=== PATIENT | female | born 1980 | race Hispanic/Latino ===

== ENCOUNTER 2018-05-11 16:44 | Inpatient (IN) | payer OTHER ==
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
[2018-05-11 18:28] LABS: BASO % 0.4 % (0.0-2.0); EOS # 0.4 K/uL (0.0-0.7); EOS % 4.5 % (0.0-4.0); HEMOGLOBIN 14.1 g/dL (12.0-16.0); LYMPH # 2.3 K/uL (1.0-4.3); LYMPH % 24.9 % (20.0-40.0); MEAN CORPUSCULAR HEMOGLOBIN 29.5 pg (27.0-31.0); MEAN CORPUSCULAR HGB CONC 33.9 g/dL (33.0-37.0); MONO # 0.5 K/uL (0.0-0.8); MONO % 5.3 % (0.0-10.0); NEUT % 64.9 % (50.0-75.0); RBC 4.78 Mil/uL (3.80-5.20); RED CELL DISTRIBUTION WIDTH 13.4 % (11.5-14.5); WHITE BLOOD COUNT 9.2 K/uL (4.8-10.8)
[2018-05-11 18:30] LABS: SQUAMOUS EPITHIAL 1 /hpf (0-5); URINE BILIRUBIN NEGATIVE (NEGATIVE); URINE BLOOD NEGATIVE (NEGATIVE); URINE CLARITY SLIGHTY-CLOUDY (Clear); URINE COLOR YELLOW (YELLOW); URINE GLUCOSE (UA) NEG (Normal); URINE LEUKOCYTE ESTERASE NEG Leu/uL (Negative); URINE PROTEIN NEGATIVE (NEGATIVE); URINE UROBILINOGEN 0.2-1.0 mg/dL (0.2-1.0)
[2018-05-11 18:44] LABS: ALB/GLOB RATIO 1.2 (1.0-2.1); ALBUMIN 4.2 g/dL (3.5-5.0); ALT/SGPT 33 U/L (9-52); AST/SGOT 27 U/L (14-36); BLOOD UREA NITROGEN 10 mg/dl (7-17); CALCIUM 9.4 mg/dL (8.4-10.2); GFR NON-AFRICAN AMERICAN > 60
[2018-05-11 18:47] LABS: BARBITURATES, UR NEGATIVE (NEGATIVE); BENZODIAZEPINES, UR NEGATIVE (NEGATIVE); OPIATES, UR NEGATIVE (NEGATIVE); PHENCYCLIDINE, UR NEGATIVE (NEGATIVE)
[2018-05-11 18:59] LABS: ACETAMINOPHEN < 10.0 ug/ml (10.0-30.0); SALICYLATE < 1.0 mg/dl
[2018-05-11 21:32] VITALS: O2SAT 98
[2018-05-11] MEDS ORDERED: Alum-Mag Hydrox-Simethicone Susp (30 mL) PO PRN (21:42)
[2018-05-11] MEDS ORDERED: DiphenhydrAMINE 50 mg/ml Inj IM PRN (21:42)
[2018-05-11] MEDS ORDERED: Magnesium Hydroxide Susp 30 ml UD PO PRN (21:42)
--- NOTE | 2018-05-11 21:56 | PCM.BM ---
<EphraimLamont - Last Filed: 05/11/18 21:54> Treatment Plan Problems - Problems identified on initial assessmt Delusions Date Initiated: 05/11/18 Time Initiated: 21:54 Assessment reference: NA Status: Active Thought Process Date Initiated: 05/11/18 Time Initiated: 21:55 Assessment reference: NA Status: Active Alteration in Emotional Status Date Initiated: 05/11/18 Time Initiated: 21:55 Assessment reference: NA Status: Active Treatment assets and liabiliti Patient Assests: adapts well, cooperative, self-reliant, ADL independent, physically healthy, negotiates basic needs Patient Liabilities: live alone, financial problems, poor support system, relationship conflicts - Milieu Protocol Maintain good personal hygiene: every shift Encourage regular showers, every shift Remind patient to perform daily oral care, every shift Assist patient to perform ADL's Maintain personal safety: daily Educate patient to report safety concerns to staff, daily Monitor environment for contraband/sharps Medication safety: Monitor for expected outcome, potential side effects: daily, Assess barriers to learning: daily, Assess readiness for medication education: daily <Dione Sims - Last Filed: 05/13/18 08:56> - Diagnosis (1) Bipolar disorder with psychotic features Status: Acute Interventions: Medication management, Individual and group therapy, Psychoeducation 05/13/18 08:56 <Flora Zamora - Last Filed: 05/13/18 12:26> Family Contact Family involvement: Famliy/SO not involved Discharge/Continuing Care - Education Needs Education Needs: Patient Medication, Patient Diagnosis/Disease Process, Patient Coping Skills, Patient Community resources, Patient Activities of Daily Living, Patient Health Practices/Safety, Patient Personal Hygiene/Grooming, Patient Aftercare Safety Plan - Discharge Discharge Criteria: Tolerates medication w/o severe side effects, Free of paranoid thoughts, Free of agitation, Ability to care for self, Reduction of target symptoms Discharge to:: Custodial - Additional Comments 05/13/18 12:15 Pt discussed in team meeting. Pt refused to attend team meeting stating that she does not feel well and requested to stay in bed. Reason for hospitalization reviewed and discussed. Reportedly, pt traveled from [place] to [place] after hearing God telling her to come to [place]. Pt is reporting visual and auditory hallucinations. Pt continues to report suicide ideation but no plan or intent. Pt's medical issues reviewed. Pt reported having a sore throat. Pt's medications reviewed. Pt is easily irritable with staff members when re-directed. Tx plan reviewed and discussed. SW to meet with pt to complete initial assessment and obtain collateral information. - Treatment Team Participation Discussed with Family/SO: No Was Patient/Family/SO present at Treatment Team Meeting: No (Pt refused to attend team meeting. )
--- NOTE | 2018-05-11 22:15 | RAD ---
Date of service: 05/11/2018 HISTORY: psychiatric admission COMPARISON: No prior. FINDINGS: LUNGS: No active pulmonary disease. PLEURA: No significant pleural effusion identified, no pneumothorax apparent. CARDIOVASCULAR: No aortic atherosclerotic calcification present. Normal cardiac size. No pulmonary vascular congestion. OSSEOUS STRUCTURES: No significant abnormalities. VISUALIZED UPPER ABDOMEN: Normal. OTHER FINDINGS: None. IMPRESSION: No active disease.
--- NOTE | 2018-05-12 10:12 | CARD ---
APPROVED REPORT Date of service: 05/11/2018 EKG Measurement Heart [id number] <Conclusion> Normal sinus rhythm Normal ECG
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
--- NOTE | 2018-05-13 08:52 | PCM.PYCHPN ---
Psychiatric Progress Note - Psychiatric Progress Note Patient seen today, length of contact: Pt evaluated, case discussed w/ team, chart reviewed Patient Chief Complaint: "I'm hearing voices telling me I'm God, but I'm not." Problems Identified/Issues Discussed: Patient reports feeling depressed and anxious. She is irritable with staff. She reports that she continues to hear AH of angels telling her she is God, which she finds distressing because she does not believe she is God. She continues to have suicidal ideation w/o plan or intent. She states that she wishes she were was not alive. She is currently refusing to get blood work done. Arborer explained to the patient that we need to monitory [place] levels for safety. Medication Change: No Medical Record Reviewed: Yes Consults ordered or reviewed: Medicine consult Mental Status Examination - Cognitive Function Orientation: Person, Place, Situation, Time Memory: Intact Association: WNL Fund of Knowledge: [facility] Decription of patient's judgement and insights: Poor I/J - Mood Mood: Depressed, Anxious - Affect Affect: Constricted - Formal Thought Process Formal Thought Process: Hallucinations Psychotic Thoughts and Behaviors: +AH - Suicidal Ideation Suicidal Ideation: Yes Plan: No active plan or intent - Homicidal Ideation Homicidal Ideation: No Goal/Treatment Plan - Goal/Treatment Plan Need for Continued Stay: Remain at risks for inpatient hospitalization, Severe depression anxiety, Discharge may exacerbated symptoms Progress Toward Problem(s) and Goals/Treatment Plan: Bipolar Disorder w/ Psychotic Features -Continue [place] and Zyprexa -Medicine consult -Individual and group therapy -Psychoeducation -Disposition planning Estimated Date of D/C: 05/17/18 - Smoking Cessation Smoking Cessation Initiated: Yes
[2018-05-13] MEDS: Benzocaine/Menthol (Cepacol) Lozenge PO PRN ×2 (17:09→21:16)
[2018-05-14] MEDS: Benzocaine/Menthol (Cepacol) Lozenge PO PRN ×2 (08:41→16:09)
--- NOTE | 2018-05-14 10:25 | PCM.PYCHPN ---
Psychiatric Progress Note - Psychiatric Progress Note Patient seen today, length of contact: Pt evaluated, case discussed w/ team, chart reviewed Patient Chief Complaint: "I'm hearing voices telling me I'm God, but I'm not." Problems Identified/Issues Discussed: Patient rreports that she last heard AH of angels last night. She continues to wonder if the angels are correct when they say she is God. She feels like she needs to go to buddhist. She is less irritable and reports that her mood is improving. She continues to refuse blood work. [employer] Insights Manager explained to the patient that we need to monitory [place] levels for safety. Medication Change: No Medical Record Reviewed: Yes Consults ordered or reviewed: Medicine consult Mental Status Examination - Cognitive Function Orientation: Person, Place, Situation, Time Memory: Intact Association: WNL Fund of Knowledge: [facility] Decription of patient's judgement and insights: Poor I/J - Mood Mood: Depressed, Anxious - Affect Affect: Constricted - Formal Thought Process Formal Thought Process: Hallucinations, Delusions Psychotic Thoughts and Behaviors: +AH; +Grandiose Delusions - Suicidal Ideation Suicidal Ideation: No - Homicidal Ideation Homicidal Ideation: No Goal/Treatment Plan - Goal/Treatment Plan Need for Continued Stay: Remain at risks for inpatient hospitalization, Severe depression anxiety, Discharge may exacerbated symptoms Progress Toward Problem(s) and Goals/Treatment Plan: Bipolar Disorder w/ Psychotic Features -Continue [place] and Zyprexa -Patient continues to refuse bloodwork; will encourage to get bloodwork done tomorrow -Medicine consult -Individual and group therapy -Psychoeducation -Disposition planning Estimated Date of D/C: 05/17/18
[2018-05-15 07:51] LABS: T4 4.93 ug/dl (5.5-11.0)
--- NOTE | 2018-05-15 11:22 | PCM.PYCHPN ---
Psychiatric Progress Note - Psychiatric Progress Note Patient seen today, length of contact: Pt evaluated, case discussed w/ team, chart reviewed Patient Chief Complaint: "I'm getting better." Problems Identified/Issues Discussed: Patient reports that her mood is improving. She denies current AH or delusions. She is aware that she is not God. She is calmer and less irritable w/ staff. Li 0.2; we discussed increasing [place] and patient is agreeable. No adverse effects to medications reported. Diagnostic Results: Li 0.2 on 05/15/18 Medication Change: Yes (Increase [place]) Medical Record Reviewed: Yes Consults ordered or reviewed: Medicine consult Mental Status Examination - Cognitive Function Orientation: Person, Place, Situation, Time Memory: Intact Attention: WNL Concentration: WNL Association: WNL Fund of Knowledge: WNL Decription of patient's judgement and insights: Improving I/J - Mood Mood: Depressed, Anxious - Affect Affect: Constricted - Formal Thought Process Formal Thought Process: No Impairment Psychotic Thoughts and Behaviors: Denies AH and delusions - Suicidal Ideation Suicidal Ideation: No - Homicidal Ideation Homicidal Ideation: No Goal/Treatment Plan - Goal/Treatment Plan Need for Continued Stay: Remain at risks for inpatient hospitalization, Severe depression anxiety, Discharge may exacerbated symptoms Progress Toward Problem(s) and Goals/Treatment Plan: Bipolar Disorder w/ Psychotic Features -Continue Zyprexa -Increase [place] -Medicine consult -Individual and group therapy -Psychoeducation -Disposition planning Estimated Date of D/C: 05/17/18
[2018-05-15] MEDS: Benzocaine/Menthol (Cepacol) Lozenge PO PRN ×2 (12:45→16:23)
--- NOTE | 2018-05-16 10:06 | PCM.PYCHPN ---
Psychiatric Progress Note - Psychiatric Progress Note Patient seen today, length of contact: Pt evaluated, case discussed w/ team, chart reviewed Patient Chief Complaint: "I'm getting better." Problems Identified/Issues Discussed: Patient reports that her mood continues to improve. She denies acute AH/VH/paranoia/delusions/SI/HI. She is less irritable and more cooperative with interview. Psychoeducation provided on the importance of compliance with treatment and medications. No adverse effects to medications reported. Diagnostic Results: Li 0.2 on 05/15/18 Medication Change: No Medical Record Reviewed: Yes Consults ordered or reviewed: Medicine consult Mental Status Examination - Cognitive Function Orientation: Person, Place, Situation, Time Memory: Intact Attention: WNL Concentration: WNL Association: WNL Fund of Knowledge: WN Decription of patient's judgement and insights: Improving I/J - Mood Mood: Anxious - Affect Affect: Constricted - Speech Speech: Appropriate - Formal Thought Process Formal Thought Process: No Impairment Psychotic Thoughts and Behaviors: Denies AH and delusions - Suicidal Ideation Suicidal Ideation: No - Homicidal Ideation Homicidal Ideation: No Goal/Treatment Plan - Goal/Treatment Plan Need for Continued Stay: Discharge may exacerbated symptoms Progress Toward Problem(s) and Goals/Treatment Plan: Bipolar Disorder w/ Psychotic Features -Continue Zyprexa and [place] -Medicine consult -Individual and group therapy -Psychoeducation -Disposition planning- patient is improving clinically, will likely discharge tomorrow Estimated Date of D/C: 05/17/18
[2018-05-17 05:55] VITALS: BP 101/59; PULSE 68; RESP 18; TEMP 97.2
--- NOTE | 2018-05-17 08:14 | PCM.PYCHDC ---
Mental Status Examination - Mental Status Examination Orientation: Person, Place, Situation, Time Memory: Intact Mood: Neutral Affect: Broad Speech: Appropriate Attention: WNL Concentration: WNL Association: WNL Fund of Knowledge: WNL Formal Thought Process: No Impairment Description of patient's judgement and insight: Fair I/J Psychotic Thoughts and Behaviors: No AH/VH/paranoia/delusions Suicidal Ideation: No Current Homicidal Ideation?: No Discharge Summary - Discharge Note Reason for Hospitalization: 38 yo transgender female w/ h/o Bipolar Disorder, presents w/ worsening depression w/ suicidal ideation, VH of animals, AH of angels and delusions that she may be God. Psychiatric History (includes Medical, Family, Personal Hx): History of 2 previous suicide attempts Consultations:: List each consultation separately and include: 1. Reason for request. 2. Findings. 3. Follow-up Consultations: Medicine consult Summary of Hospital Course include:: 1. Description of specific treatment plan utilized for patients during their course of treatmen. 2. Summarize the time- course for resolution of acute symptoms and/or regressed behaviors. 3. Describe issues identified and worked on during hospitalization. 4. Describe medication utilized. 5. Describe medical problems identified and treated. 6. Reassessment of suicide risk Summary of Hospital Course: Patient was admitted to the psychiatry unit. Individual and group therapy were provided. Patient was stabilized on [facility] [facility] 300 mg PO Daily/ 600 mg PO Daily@1700 and Zyprexa 10 mg PO HS. Psychoeducation provided on the importance of compliance with treatment and medications. Patient denies acute depression/anxiety/AH/VH/SI/HI. She is psychiatrically stable for discharge at this time. - Diagnosis (1) Bipolar disorder with psychotic features Current Visit: Yes Status: Acute - Final Diagnosis (DSM 5) Condition upon Discharge: STABLE DSM 5: Bipolar Disorder w/ Psychotic Features Disposition: HOME/ ROUTINE Follow-up Treatment Plan: Bipolar Disorder w/ Psychotic Features; patient is psychiatrically stable for discharge at this time -Continue Zyprexa and [facility] [facility] Prescriptions/Medication Reconciliation: [place] [facility] Carbonate [[facility] [facility] Carbonate 300MG] 300 mg PO ASDIR #90 cap OLANZapine [Zyprexa] 10 mg PO HS #30 tab - Smoking Cessation Smoking Cessation Medication prescribed: Yes Reason for not providing: Prescribed during admission; pt declined outpatient prescription - Antipsychotic Medications Pt discharged on 2 or more routine antipsychotic medications: No
== END 2018-05-17 09:25 | disposition home or self-care (01) | DRG 753 ==
LOC: H.ER 16:44 → H.ERHOLD 20:32 → H.STEP 21:34
PROVIDERS: ADMIT Psychiatry & Neurology Psychiatry; ATTEND Psychiatry & Neurology Psychiatry
PROC: GZHZZZZ Group Psychotherapy (ICD-10-PCS; principal; 2018-05-11)
PROC: GZ58ZZZ Individual Psychotherapy, Cognitive-Behavioral (ICD-10-PCS; 2018-05-11)
DX: F31.2 Bipolar disorder, current episode manic severe with psychotic features (principal); R45.851 Suicidal ideations; F12.10 Cannabis abuse, uncomplicated; F64.9 Gender identity disorder, unspecified; F41.9 Anxiety disorder, unspecified; G47.00 Insomnia, unspecified; Z91.5 Personal history of self-harm; F17.210 Nicotine dependence, cigarettes, uncomplicated